=== PATIENT | male | born 1995 | race Caucasian/White ===

== ENCOUNTER 2017-09-13 15:18 | Emergency (ER) | payer OTHER ==
[~2017-09-13] VITALS: Ht 193 cm; Wt 113.5 kg
[2017-09-13] MEDS ORDERED: MOTRIN600 MG PO (16:55)
[2017-09-13 17:07] VITALS: BP 170/86
== END 2017-09-13 17:08 | disposition home or self-care (01) ==
LOC: EME 15:18
DX: H60.92 Unspecified otitis externa, left ear (principal)
CPT/HCPCS: 99281; 99283